=== PATIENT | male | born 1950 | race Caucasian/White ===

== ENCOUNTER → 2017-07-01 | Outpatient (CLI) | payer MEDICARE, OTHER | END | disposition home or self-care (01) | LOC: GMAH 10:28 | PROVIDERS: ATTEND Family Medicine | DX: Z12.5 Encounter for screening for malignant neoplasm of prostate (principal); E78.2 Mixed hyperlipidemia | CPT/HCPCS: 84443; 84550; G0103 ==

== ENCOUNTER → 2018-07-06 | Outpatient (CLI) | payer MEDICARE, OTHER | LOC: GMAH 14:54 | PROVIDERS: ATTEND Family Medicine | DX: I10 Essential (primary) hypertension (principal); E78.2 Mixed hyperlipidemia; Z12.5 Encounter for screening for malignant neoplasm of prostate | CPT/HCPCS: 84443; 84550; G0103 ==

== ENCOUNTER 2018-08-18 06:06 | Day surgery (SDC) | payer MEDICARE, OTHER ==
[~2018-08-18 06:06] MED LIST: LACTATED RINGERS 1,000 ML ONE
[2018-08-18] MEDS ORDERED: MIDAZOLAM INJ 2 MG/2 ML VIAL ONE (07:46)
--- NOTE | 2018-08-18 09:46 | OP ---
DATE OF PROCEDURE: 08/18/18 PREPROCEDURE DIAGNOSIS: 1. High risk colorectal cancer screening. His father had colon cancer in less than 60 years old. POSTPROCEDURE DIAGNOSIS: 1. Normal colonoscopy. PROCEDURE: 1. Colonoscopy. SURGEON: Manuel Hall MD. SEDATION: Monitored anesthesia care. ESTIMATED BLOOD LOSS: 0 mL. PROCEDURE: Informed consent was obtained prior to sedation. The preprocedure cardiopulmonary assessment was satisfactory. The patient was brought to the Endoscopy Suite and placed in the left lateral decubitus position. The patient was then sedated by the anesthesia team. Digital rectal and perianal exams were normal. The tip of the Olympus colonoscope was inserted into the rectum and advanced under direct visualization to the terminal ileum. The cecum was identified by the presence of the appendiceal orifice and ileocecal valve. Preparation of the colon was good. The terminal ileum was normal. Upon reaching the terminal ileum, the endoscope was slowly withdrawn. There was significant looping while inserting the scope, requiring abdominal pressure, but otherwise the examination of the colon was normal. Retroflexed view of the anal verge showed no abnormalities. The endoscope was then withdrawn from the patient and the procedure terminated. RECOMMENDATION: 1. Discharge the patient home with escort. 2. Resume regular diet. 3. Continue present medications. 4. Repeat screening colonoscopy in 5 years' time given his elevated risk. #[id number] MTDD
[2018-08-18] MEDS ORDERED: PROPOFOL 200 MG/20 ML VIAL IV ONE (10:00)
[2018-08-18] MEDS ORDERED: HYOSCYAMINE SULFATE 0.5 MG/ML VIAL IV ONE (10:16)
[2018-08-18 11:27] VITALS: BP 140/90; TEMP 96.8; O2SAT 100
== END 2018-08-18 11:00 | disposition home or self-care (01) ==
LOC: AMB 06:06
PROVIDERS: ATTEND Internal Medicine Gastroenterology
DX: Z12.11 Encounter for screening for malignant neoplasm of colon (principal); E78.00 Pure hypercholesterolemia, unspecified; I10 Essential (primary) hypertension; E66.9 Obesity, unspecified; Z80.0 Family history of malignant neoplasm of digestive organs; Z68.30 Body mass index [BMI] 30.0-30.9, adult; Z79.899 Other long term (current) drug therapy
CPT/HCPCS: 00812; G0105; J2250; J3490; J7120

== ENCOUNTER → 2019-09-13 | Outpatient (CLI) | payer MEDICARE, OTHER | LOC: GMA MATASK 10:40 | PROVIDERS: ATTEND Family Medicine | DX: E04.9 Nontoxic goiter, unspecified (principal) ==

== ENCOUNTER → 2019-09-21 | Outpatient (CLI) | payer MEDICARE, OTHER ==
--- NOTE | 2019-09-21 14:50 | US ---
US THYROID CLINICAL STATEMENT: NONTOXIC SINGLE THYROID NODULE. COMPARISON: Ultrasound thyroid January 14, 2019. TECHNIQUE: Transcutaneous scanning, grayscale and Doppler modes. FINDINGS: Size right thyroid lobe: 5.3 x 2.5 x 1.7 cm Size left thyroid lobe: 3.6 x 1.6 x 1.3 cm Size isthmus: 0.3 cm Estimated total number of nodules greater than or equal to 1 cm: 1 Nodule 1: Size: 1.6 x 1.6 x 1.4 cm Location: Right Mid Composition: solid or almost completely solid: 2 points Echogenicity: hypoechoic: 2 points Shape: wider than tall: 0 points Margins: smooth: 0 points Echogenic foci: none: 0 points ACR Total Points: 4; ACR TI-RADS risk category: TR4 - moderately suspicious nodule. Nodule 2:8 mm nodule seen on the prior study is not seen on the current exam. No dominant solid mass or distinct cyst or calcifications in the surrounding soft tissues. IMPRESSION: 1. Nodule 1: ACR TI-RADS 2017 Category TR4. Recommend: Ultrasound-guided fine needle aspiration. The nodule has enlarged slightly since the prior study (January 2019). Recommendations based upon [facility] Best Practice recommendations and ACR TI-RADS 2017 guidelines. Please see below*. 2. No other nodules seen soft tissue around the thyroid gland unremarkable. *ACR TI-RADS 2017 Recommendations for imaging follow-up of nodules: TR1: No FNA or follow up TR2: No FNA or follow up TR3: FNA if >/= 2.5 cm, follow up if 1.5 - 2.4 cm in 1, 3, and 5 years TR4: FNA if >/= 1.5 cm, follow up if 1.0 - 1.4 cm in 1, 2, 3, and 5 years TR5: FNA if >/= 1.0 cm, follow up if 0.5 - 0.9 cm every year for 5 years ACR TI-RADS recommends that no more than two nodules with the highest ACR TI-RADS total point should be biopsied and no more than four nodules should be followed. These recommendations do not apply to patients with increased risk for thyroid cancer or patients with symptomatic thyroid disease. Electronically signed by: Clarence Villa MD 09/21/2019 2:48 PM [facility]
== END ==
LOC: US 10:30
PROVIDERS: ATTEND Family Medicine
DX: E04.1 Nontoxic single thyroid nodule (principal)